=== PATIENT | female | born 1995 | race Caucasian/White ===

== ENCOUNTER → 2021-09-05 | Outpatient (REF) | payer BC ==
[2021-09-05 18:15] LABS: APPEARANCE, URINE CLEAR (CLEAR); BACTERIA, URINE AUTO 1+ (NEGATIVE); BILIRUBIN, URINE AUTO NEGATIVE (NEGATIVE); BLOOD, URINE BLOOD 1+ (NEGATIVE); COLOR, URINE YELLOW (YELLOW); GLUCOSE, URINE (UA) AUTO NEGATIVE (NEGATIVE); KETONE, URINE AUTO NEGATIVE (NEGATIVE); LEUKOCYTE ESTERASE, URINE AUTO TRACE (NEGATIVE); NITRITE, URINE AUTO NEGATIVE (NEGATIVE); PROTEIN, URINE AUTO NEGATIVE (NEGATIVE); RBC, URINE AUTO 1 /HPF (0-3); SPECIFIC GRAVITY URINE AUTO 1.009 (1.002-1.035); SQUAMOUS EPITHELIAL CELL UR AU 1 /HPF (0-6); UROBILINOGEN, URINE AUTO 0.2 mg/dL (0.0-2.0); WBC, URINE AUTO 15 /HPF (0-3)
== END ==
LOC: M LAB REF 16:19
PROVIDERS: ATTEND Physician Assistant Medical
DX: N39.0 Urinary tract infection, site not specified (principal); B96.20 Unspecified Escherichia coli [E. coli] as the cause of diseases classified elsewhere

== ENCOUNTER → 2021-12-27 | Outpatient (REF) | payer BC ==
[2021-12-27 19:19] LABS: APPEARANCE, URINE MANUAL CLEAR (CLEAR); BILIRUBIN, URINE MANUAL NEGATIVE (NEGATIVE); BLOOD URINE MANUAL NEGATIVE (NEGATIVE); COLOR, URINE MANUAL YELLOW (YELLOW); GLUCOSE, URINE (UA) MANUAL NEGATIVE (NEGATIVE); KETONE, URINE MANUAL NEGATIVE (NEGATIVE); LEUKOCYTE ESTERASE, URINE MAN POSITIVE (NEGATIVE); NITRITE, URINE MANUAL NEGATIVE (NEGATIVE); PROTEIN, URINE MANUAL NEGATIVE (NEGATIVE); UROBILINOGEN, URINE MANUAL NORMAL (NORMAL)
[2021-12-27 19:21] LABS: URINE PREG TEST NEGATIVE (NEGATIVE)
[2021-12-27 19:27] LABS: BACTERIA, URINE SMALL AMOUNT; HYALINE CAST, URINE NONE SEEN /lpf (0-1); RBC, URINE NONE SEEN /hpf (0-3); SQUAMOUS EPITHELIAL CELL URINE SMALL AMOUNT /hpf (SMALL AMT)
== END ==
LOC: M LAB REF 16:26
PROVIDERS: ATTEND Physician Assistant
DX: N39.0 Urinary tract infection, site not specified (principal)

== ENCOUNTER → 2022-01-17 | Outpatient (REF) | payer BC ==
[2022-01-17 22:28] LABS: APPEARANCE, URINE MANUAL CLEAR (CLEAR); COLOR, URINE MANUAL YELLOW (YELLOW)
[2022-01-17 22:29] LABS: BILIRUBIN, URINE MANUAL NEGATIVE (NEGATIVE); BLOOD URINE MANUAL NEGATIVE (NEGATIVE); GLUCOSE, URINE (UA) MANUAL NEGATIVE (NEGATIVE); KETONE, URINE MANUAL NEGATIVE (NEGATIVE); LEUKOCYTE ESTERASE, URINE MAN TRACE (NEGATIVE); NITRITE, URINE MANUAL NEGATIVE (NEGATIVE); PH,URINE MAN 6.5 UNITS (5.0 - 7.0); PROTEIN, URINE MANUAL NEGATIVE (NEGATIVE); SPECIFIC GRAVITY,URINE MANUAL 1.015 (1.002-1.035); UROBILINOGEN, URINE MANUAL NORMAL (NORMAL)
[2022-01-17 22:51] LABS: AMORPHOUS SEDIMENT, URINE SMALL AMOUNT (NEGATIVE); BACTERIA, URINE SMALL AMOUNT; HYALINE CAST, URINE NONE SEEN /lpf (0-1); RBC, URINE NONE SEEN /hpf (0-3); SQUAMOUS EPITHELIAL CELL URINE SMALL AMOUNT /hpf (SMALL AMT)
== END ==
LOC: M LAB REF 21:29
PROVIDERS: ATTEND Physician Assistant
DX: N39.0 Urinary tract infection, site not specified (principal)

== ENCOUNTER → 2022-10-10 | Outpatient (REF) | payer BC ==
[2022-10-10 13:47] LABS: APPEARANCE, URINE CLEAR (CLEAR); BACTERIA, URINE AUTO 1+ (NEGATIVE); BILIRUBIN, URINE AUTO NEGATIVE (NEGATIVE); BLOOD, URINE BLOOD NEGATIVE (NEGATIVE); COLOR, URINE AMBER (YELLOW); GLUCOSE, URINE (UA) AUTO NEGATIVE (NEGATIVE); KETONE, URINE AUTO NEGATIVE (NEGATIVE); LEUKOCYTE ESTERASE, URINE AUTO NEGATIVE (NEGATIVE); NITRITE, URINE AUTO POSITIVE (NEGATIVE); PROTEIN, URINE AUTO NEGATIVE (NEGATIVE); RBC, URINE AUTO 0 /HPF (0-3); SPECIFIC GRAVITY URINE AUTO 1.009 (1.002-1.035); SQUAMOUS EPITHELIAL CELL UR AU 1 /HPF (0-6); WBC, URINE AUTO 7 /HPF (0-3)
== END ==
LOC: M LAB REF 12:19
PROVIDERS: ATTEND Physician Assistant
DX: N39.0 Urinary tract infection, site not specified (principal)

== ENCOUNTER → 2022-10-17 | Outpatient (REF) | payer BC ==
[2022-10-17 17:26] LABS: APPEARANCE, URINE CLEAR (CLEAR); BACTERIA, URINE AUTO 1+ (NEGATIVE); BILIRUBIN, URINE AUTO NEGATIVE (NEGATIVE); BLOOD, URINE BLOOD NEGATIVE (NEGATIVE); COLOR, URINE AMBER (YELLOW); GLUCOSE, URINE (UA) AUTO NEGATIVE (NEGATIVE); KETONE, URINE AUTO NEGATIVE (NEGATIVE); LEUKOCYTE ESTERASE, URINE AUTO NEGATIVE (NEGATIVE); NITRITE, URINE AUTO POSITIVE (NEGATIVE); PROTEIN, URINE AUTO NEGATIVE (NEGATIVE); RBC, URINE AUTO 0 /HPF (0-3); SPECIFIC GRAVITY URINE AUTO 1.005 (1.002-1.035); SQUAMOUS EPITHELIAL CELL UR AU 1 /HPF (0-6); WBC, URINE AUTO 1 /HPF (0-3)
== END ==
LOC: M LAB REF 16:13
PROVIDERS: ATTEND Physician Assistant Medical
DX: N39.0 Urinary tract infection, site not specified (principal)

== ENCOUNTER → 2022-11-03 | Outpatient (REF) | payer BC ==
[~2022-11-03] MED LIST: COLA100C5 PO; DOXY25TA PO; IBUP80TA PO; MAGN400C2 PO; PERCOCET PO
[2022-11-03 20:17] LABS: GC DNA AMPLIFICATION NEGATIVE (NEGATIVE)
== END ==
LOC: M WUC 18:34
PROVIDERS: ATTEND Physician Assistant Medical
DX: N94.10 Unspecified dyspareunia (principal)

== ENCOUNTER 2022-11-04 02:37 | Day surgery (SDC) | payer BC ==
[2022-11-04] VITALS (10 sets, daily range): BP systolic 96–113; BP diastolic 52–60; TEMP 97.4–98.5; O2SAT 98–100
[~2022-11-04] VITALS: Ht 165.1 cm; Wt 56.4 kg
[2022-11-04] MEDS ORDERED: NS 1,000 ML IV ONE ×2 (02:55→08:15)
[2022-11-04 03:08] LABS: BASO # 0.1 10^3/uL (0.0-0.2); BASO % 0.6 % (0.0-1.0); EOS # 0.6 10^3/uL (0.0-0.5); EOS % 3.7 % (0.0-3.0); HEMATOCRIT 32.4 % (36.0-47.0); LYMPH # 3.4 10^3/uL (1.5-5.0); LYMPH % 22.4 % (24.0-44.0); MEAN CORPUSCULAR HEMOGLOBIN 30.9 pg (27.0-33.0); MONO # 1.2 10^3/uL (0.0-0.8); MONO % 7.7 % (2.0-8.0); NEUTROPHILS % 65.2 % (36.0-66.0); PLATELET COUNT, AUTOMATED 236 10^3/uL (150-450); RED BLOOD COUNT 3.56 10^6/uL (4.00-5.40); WHITE BLOOD COUNT 15.3 10^3/uL (4.0-10.0)
[2022-11-04 03:35] LABS: BLOOD UREA NITROGEN 16 MG/DL (9-23); CALCIUM LEVEL 8.3 MG/DL (8.5-10.1); CARBON DIOXIDE LEVEL 25 MMOL/L (20-31); CHLORIDE LEVEL 106 MMOL/L (98-107); CK-MB VALUE MASS < 1.0 NG/ML (<3.6); CPK CREATINE PHOSPHOKINASE 84 U/L (34-145); GLOMERULAR FILTRATION RATE > 60.0 (>60); GLUCOSE, FASTING 105 MG/DL (60-100); MB/CK RELATIVE INDEX 1.19 (< OR =4); POTASSIUM SERUM 3.8 MMOL/L (3.5-5.1); SODIUM LEVEL 137 MMOL/L (136-145)
[2022-11-04] MEDS ORDERED: MORPHINE 4 MG/ML 1ML VIAL As Ordered ONE (03:44)
[2022-11-04] MEDS ORDERED: ONDANSETRON 4MG 2ML VIAL IV ONE ×2 (03:45→07:15)
[2022-11-04] MEDS ORDERED: MORPHINE 4 MG/ML 1ML VIAL IV ONE ×2 (03:45→05:35)
[2022-11-04] MEDS ORDERED: ONDANSETRON 4MG 2ML VIAL As Ordered ONE ×2 (03:45→09:57)
[2022-11-04] MEDS ORDERED: NS 1,690 ML in IV 1 EA IV ONE (03:45)
[2022-11-04 03:52] LABS: HCG, SERUM QUALITATIVE NEGATIVE (NEGATIVE)
[2022-11-04 04:30] LABS: BILIRUBIN,DIRECT 0.2 MG/DL (<0.4); BILIRUBIN,TOTAL 0.5 MG/DL (0.3-1.2); MAGNESIUM LEVEL 1.7 MG/DL (1.8-2.4); TOTAL PROTEIN 5.3 G/DL (5.7-8.2)
[2022-11-04] MEDS ORDERED: ISOVUE-370 76% 100ML VIAL As Ordered ONE (04:32)
[2022-11-04] MEDS ORDERED: MEROPENEM INJ 1 GM in IV 1 EA IV ONE (05:35)
[2022-11-04] MEDS ORDERED: NS 1,000 ML IV SCH (07:15)
[2022-11-04] MEDS: fentaNYL 100 MCG/2 ML INJECTION IV PRN ×2 (07:25→08:30)
[2022-11-04 08:34] LABS: HEMATOCRIT 23.2 % (36.0-47.0)
[2022-11-04 08:39] LABS: HEMOGLOBIN 7.8 g/dl (12.0-15.5)
[2022-11-04] MEDS ORDERED: fentaNYL 100 MCG/2 ML INJECTION As Ordered ONE (09:03)
[2022-11-04] MEDS ORDERED: ROCURONIUM BROMIDE 50MG/5ML VIAL As Ordered ONE ×2 (09:03→09:58)
[2022-11-04] MEDS ORDERED: LIDOCAINE 2% 100MG/5ML SDV (FOR ANES.) As Ordered ONE (09:03)
[2022-11-04] MEDS ORDERED: MIDAZOLAM INJ 2MG/2ML VIAL As Ordered ONE (09:03)
[2022-11-04] MEDS ORDERED: propofoL 200 MG/20 ML VIAL As Ordered ONE (09:03)
[2022-11-04] MEDS ORDERED: ePHEDrine SULFATE 25 MG/5 ML(5MG/ML) SYRINGE As Ordered ONE (09:45)
[2022-11-04] MEDS ORDERED: MED REC IN PROGRESS XX SCH (09:50)
[2022-11-04] MEDS ORDERED: PHENYLephrine 500MCG 5ML (100MCG/ML) SYRINGE As Ordered ONE (09:50)
[2022-11-04] MEDS ORDERED: METOCLOPRAMIDE INJ 10MG/2ML VIAL As Ordered ONE (09:57)
[2022-11-04] MEDS ORDERED: SUGAMMADEX SODIUM 500 MG/5 ML VIAL (BRIDION) As Ordered ONE (09:57)
[2022-11-04] MEDS ORDERED: ACETAMINOPHEN 1000MG 100ML IV BAG As Ordered ONE (09:57)
[2022-11-04] MEDS ORDERED: MEPERIDINE 25 MG/ML 1ML VIAL IV PRN (10:50)
[2022-11-04] MEDS ORDERED: LR 1,000 ML IV SCH ×2 (10:50→12:45)
[2022-11-04] MEDS ORDERED: HYDROMORPHONE HCL 0.5 MG/ 0.5 ML SYRINGE IV PRN (10:50)
[2022-11-04] MEDS ORDERED: ONDANSETRON 4MG 2ML VIAL IV PRN (10:50)
[2022-11-04] MEDS ORDERED: oxyCODONE 5MG TAB PO PRN (10:50)
[2022-11-04] MEDS ORDERED: fentaNYL 100 MCG/2 ML INJECTION IV PRN (10:50)
[2022-11-04 11:24] LABS: MEAN CORPUSCULAR HGB CONC 33.5 g/dl (32.0-36.5); MEAN CORPUSCULAR VOLUME 92.5 fl (80.0-96.0); RED BLOOD COUNT 2.26 10^6/uL (4.00-5.40); WHITE BLOOD COUNT 9.8 10^3/uL (4.0-10.0)
[2022-11-04 11:28] LABS: HEMATOCRIT 20.9 % (36.0-47.0); PLATELET COUNT, AUTOMATED 121 10^3/uL (150-450)
[2022-11-04] MEDS ORDERED: DOXY25TA PO (11:32)
[2022-11-04] MEDS ORDERED: MAGN400C2 PO (11:32)
[2022-11-04] MEDS ORDERED: HOME MED LIST COMPLETE! XX SCH (11:40)
[2022-11-04] MEDS ORDERED: PERCOCET 5MG/325MG TAB PO PRN ×2 (11:45)
[2022-11-04] MEDS ORDERED: MORPHINE 2 MG/ML 1ML VIAL IV PRN (11:45)
[2022-11-04] MEDS ORDERED: PERCOCET PO (12:36)
[2022-11-04] MEDS ORDERED: IBUP80TA PO (12:36)
[2022-11-04] MEDS ORDERED: COLA100C5 PO (12:37)
[2022-11-04] MEDS: KETOROLAC 30 MG/ML 1ML VIAL IV PRN ×2 (14:27→20:27)
[2022-11-04] MEDS ORDERED: ACETAMINOPHEN 500 MG TAB PO SCH (18:00)
[2022-11-04 22:08] LABS: HEMATOCRIT 28.8 % (36.0-47.0); MEAN CORPUSCULAR HEMOGLOBIN 30.4 pg (27.0-33.0); MEAN CORPUSCULAR VOLUME 89.4 fl (80.0-96.0); PLATELET COUNT, AUTOMATED 119 10^3/uL (150-450); RED BLOOD COUNT 3.22 10^6/uL (4.00-5.40); WHITE BLOOD COUNT 11.9 10^3/uL (4.0-10.0)
[2022-11-04 22:11] LABS: HEMOGLOBIN 9.8 g/dl (12.0-15.5)
[2022-11-05] VITALS: BP 106/64; TEMP 98; O2SAT 100
== END 2022-11-05 00:10 | disposition home or self-care (01) ==
LOC: M ED 02:37 → M SDC 02:38 → M PED 12:18 → M SDC 11-05 00:10
PROVIDERS: ATTEND Obstetrics & Gynecology
DX: N83.292 Other ovarian cyst, left side (principal); K66.1 Hemoperitoneum; Z88.0 Allergy status to penicillin
CPT/HCPCS: 36415; 36430; 49322; 58662; 71045; 74177; 76856; 80048; 80076; 81001; 82550; 82553; 83735; 84484; 84703; 85014; 85018; 85025; 85027; 86850; 86900; 86901; 86920; 87040; 87486; 87581; 87633; 87798; 88305; 93005; 93976; 96361; 96365; 96375; 96376; 99285; J0131; J0665; J1100; J1885; J2184; J2250; J2371; J2405; J2765; J3010; P9016; Q9967